=== PATIENT | female | born 1975 | race Caucasian/White ===

== ENCOUNTER → 2016-09-10 | Outpatient (CLI) | payer OTHER | LOC: FIMAGING 11:43 | PROVIDERS: ATTEND Obstetrics & Gynecology | DX: Z12.31 Encounter for screening mammogram for malignant neoplasm of breast (principal) | CPT/HCPCS: G0202 ==

== ENCOUNTER 2017-02-20 05:54 | Observation (INO) | payer OTHER ==
--- NOTE | 2017-01-23 16:56 | GHP ---
[f rep st] PREOP HISTORY AND PHYSICAL DATE OF ADMISSION: 02/20/2017 SURGERY DATE: 02/20/2017. PLANNED PROCEDURES: Total laparoscopic hysterectomy with bilateral salpingectomy. INDICATIONS: The patient is a 41-year-old 1, para 1-0-0-1, who has a longstanding history of very heavy periods. She soaks through a super plus pads and tampons and the tampons are often pushe d out by clots. She has tried conservative management with control pills, which did not regula te her cycles, and [facility], and is requesting definitive therapy. Patient has a known history of polycystic ovarian syndrome for which she takes metformin on a regular basis. We have discussed all management options with the patient. The patient is electing to proce ed with a total laparoscopic hysterectomy with bilateral salpingectomy. Risks and benefits have been extensively reviewed with the patient. The patient has been properly consented. MEDICAL HISTORY: Polycystic ovarian syndrome, migraines, depression, history of menstrual migraines, history of cervical dysplasia. Patient has a history of a skull fracture after falling out of a hig h chair MEDICATIONS: Metformin, venlafaxine, and Imitrex p.r.n. SURGICAL HISTORY: Repair of left knee meniscus, diagnostic laparoscopy followed by laparotomy when s he was 6 years old for a torsion of her right fallopian tube, which was not removed. It was tacked t o the sidewall. ALLERGIES: Reglan, which causes itching and restlessness. Sulfa, which causes a whole-body rash. 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 She denies tobacco, alcohol, or drug use. FAMILY MEDICAL HISTORY: Noncontributory. CERTIFIED GENETIC COUNSELOR HISTORY: Menarche age 10. Periods are every 25-32 days. They are extremely heavy with clots and cramps. The patient is a 1, para 1-0-0-1. In 2006, she had a vacuum-assisted vaginal delivery of a f ull-term, 6 pounds 6 ounce infant. The patient's was complicated by hyperemesis gravidarum . The patient had an episode of tachycardia which was treated medically and she was induced at 38 weeks. The patient does have a history of abnormal Pap smears. She had a history of cryosurgery in 2001. R epeat Paps have been negative. The patient denies any history of any other sexually transmitted dise ases. REVIEW OF SYSTEMS: 10-point review of systems is negative with the exception of the above-mentioned pertinent positives. PHYSICAL EXAMINATION: VITAL SIGNS: Stable. GENERAL APPEARANCE: Alert and oriented x3. PSYCH: Sh e has appropriate affect. NECK: Mobile and supple. HEART: Rate is regular. LUNGS: Clear to ausc ultation bilaterally. ABDOMEN: Soft, nondistended, nontender. No organomegaly is noted. EXTREMITIE S: No calf tenderness or edema. PELVIC: A mobile midposition uterus with no adnexal masses. Uteru s on ultrasound measures x 3.7 x 5.4 cm with an endometrium of 0.37 cm and a right ovary m easuring 2 x 1.9 x 1.9 cm with a complex area measured 1.7 x 1.2 x 1.6 cm. The left ovary is unremar kable with the exception of a small simple cyst. Endometrial biopsy is pending. ASSESSMENT AND PLAN: A 41-year-old 1, para 1-0-0-1 with a longstanding history of polycystic ovarian syndrome, menstrual migraines, and menorrhagia. She is requesting definitive therapy with a total laparoscopic hysterectomy with bilateral salpingectomy. Risks and benefits and all alternativ es have been extensively reviewed with the patient. Patient has been properly consented. /[id number]/MODL
[2017-02-20] MEDS ORDERED: ceFAZolin 2 GM/SWFI 2 GM/20 ML SYR IVP ONE (05:58)
[2017-02-20] MEDS ORDERED: LR 1,000 ML IV ONE (05:59)
[2017-02-20] MEDS ORDERED: LIDOCAINE 1% 2 ML INJ ID PRN (05:59)
[2017-02-20] MEDS ORDERED: BUPIVACAINE 0.5% 30 ML SDV ONE (06:13)
--- NOTE | 2017-02-20 06:55 | PDANEPAE ---
ANE History of Present Illness DUB ANE Past Medical History - Cardiovascular History Hx Hypertension: No Hx Arrhythmias: No Hx Chest Pain: No Hx Coronary Artery / Peripheral Vascular Disease: No Hx CHF / Valvular Disease: No Hx Palpitations: No - Pulmonary History Hx COPD: No Hx Asthma/Reactive Airway Disease: No Hx Recent Upper Respiratory Infection: No Hx Oxygen in Use at Home: No Hx Sleep Apnea: No Sleep Apnea Screening Result - Last Documented: Negative - Neurologic History Hx Cerebrovascular Accident: No Hx Seizures: No Hx Dementia: No - Endocrine History Hx Diabetes: No - Renal History Hx Renal Disorders: No - Liver History Hx Hepatic Disorders: No - Neurological & Psychiatric Hx Hx Neurological and Psychiatric Disorders: Yes Neurological / Psychiatric History Comment: migraines - Cancer History Hx Cancer: No - Congenital Disorder History Hx Congenital Disorders: No - GI History Hx Gastrointestinal Disorders: No - Other Health History Other Health History: polycistic ovaries - Chronic Pain History Chronic Pain: No - Surgical History Prior Surgeries: none ANE Review of Systems Review of Systems: - Exercise capacity METS (RN): 5 METS ANE Patient History - Allergies Allergies/Adverse Reactions: metoclopramide [From Reglan] Allergy (Verified 01/31/17 13:53) agitation Sulfa (Sulfonamide Antibiotics) Allergy (Verified 01/31/17 13:53) Rash - Home Medications Home medications: home medication list seen and reviewed Home Medications: SUMAtriptan [Imitrex 50 MG (*)] 100 mg PO DAILY PRN 01/31/17 [Last Taken ] Venlafaxine Xr [Effexor Xr 37.5MG (*)] 37.5 mg PO DAILY 01/31/17 [Last Taken ] metFORMIN HCL [Metformin HCl ER] 500 mg PO DAILY18 01/31/17 [Last Taken 02/19/17 ] - NPO status NPO Since - Liquids (Date): 02/19/17 NPO Since - Liquids (Time): 22:00 NPO Since - Solids (Date): 02/19/17 NPO Since - Solids (Time): 19:00 - Anes Hx Anes Hx: post operative nausea and vomiting - Smoking Hx Smoking Status: Never smoked - Family Anes Hx Family Hx Anesthesia Complications: none ANE Labs/Vital Signs - Vital Signs Blood Pressure: 126/85 Heart Rate: 67 Respiratory Rate: 16 O2 Sat (%): 97 Height: 167.64 cm Weight: 65.771 kg ANE Physical Exam - Airway Neck exam: FROM Mallampati Score: Class 1 Mouth exam: normal dental/mouth exam - Pulmonary Pulmonary: no respiratory distress - Cardiovascular Cardiovascular: regular rate and rhythym - ASA Status ASA Status: I ANE Anesthesia Plan Anesthesia Plan: general endotracheal anesthesia, spinal (PSR intrathecial MS for POPM)
[2017-02-20] MEDS ORDERED: MIDAZOLAM 2 MG/2 ML VIAL IVP ONE (06:56)
[2017-02-20] MEDS ORDERED: SCOPOLAMINE HYDROBROMIDE 1 MG/3 DAYS PATCH TD ONE (06:56)
[2017-02-20] MEDS ORDERED: fentaNYL 100 MCG/2 ML INJ ONE ×2 (07:08→10:43)
[2017-02-20] MEDS ORDERED: PROPOFOL 200 MG/20 ML VIAL ONE (07:09)
[2017-02-20] MEDS ORDERED: PROPOFOL/EMULSION 500 MG/50 ML BOTTLE IV ONE (07:09)
[2017-02-20] MEDS ORDERED: GLYCOPYRROLATE 0.2 MG/1 ML VIAL ONE (07:10)
[2017-02-20] MEDS ORDERED: ROCURONIUM 50 MG/5 ML VIAL ONE (07:10)
--- NOTE | 2017-02-20 07:17 | PDHPUP ---
History & Physical Update H&P update statement: This history and physical update is based on an assessment of the patient which was completed after admission or registration (within 24 hours), but prior to the surgery/procedure. H&P update: H&P reviewed & patient examined, no change in patient's condition since H&P completed H&P changes: patient had appendectomy at time of laparotomy for torsed fallopian tube
[2017-02-20] MEDS ORDERED: morphINE PF 5 MG/10 ML INJ ONE (07:20)
[2017-02-20] MEDS ORDERED: BUPIVACAINE/DEXTROSE 7.5MG/ML 2 ML SPINAL AMP SP ONE (07:22)
[2017-02-20] MEDS ORDERED: PHENYLEPHRINE HCL 100 MCG/ML SYR ONE (07:45)
[2017-02-20] MEDS ORDERED: DEXAMETHASONE 4 MG/ML VIAL ONE (07:56)
[2017-02-20] MEDS ORDERED: ONDANSETRON 4 MG/2 ML VIAL ONE ×2 (07:58→09:37)
[2017-02-20] MEDS ORDERED: METHYLENE BLUE 0.5% 50 MG/10 ML AMP ONE (09:04)
[2017-02-20] MEDS ORDERED: SUGAMMADEX SODIUM 200 MG/2 ML VIAL IVP ONE (09:49)
[2017-02-20] MEDS ORDERED: PROMETHAZINE HCL 25 MG/ML INJ IVP PRN (09:51)
[2017-02-20] MEDS ORDERED: NALOXONE HCL 0.4 MG/ML INJ IVP PRN (09:51)
[2017-02-20] MEDS ORDERED: ONDANSETRON 4 MG/2 ML VIAL IVP PRN (09:51)
[2017-02-20] MEDS ORDERED: fentaNYL 100 MCG/2 ML INJ IVP PRN (09:51)
--- NOTE | 2017-02-20 10:06 | POSTOPPROG ---
Post Op Note Date of Operation: 02/20/17 Surgeon: Tiffany Barnett Vice President Of Human Resources: cherelle hunt Anesthesiologist: savannah Anesthesia: GET(General Endotracheal), Spinal Pre-op Diagnosis: dysfunctional uterine bleeding, menorhrragia Post-op Diagnosis: same Procedure: total lap hyst, bilateral salpingectomy, removal of ovarian tissue, cysto Inf/Abcess present in the surg proc area at time of surgery?: No EBL: 50-100 Specimen(s): uterus, bilateral tubes, portion of right ovary
[2017-02-20] MEDS ORDERED: SUMAtriptan 50 MG TAB PO PRN (10:09)
--- NOTE | 2017-02-20 10:14 | POSTANESTH ---
Post Anesthetic Evaluation Cardiovascular Status: Normal, Stable Respiratory Status: Normal, Stable Level of Consciousness/Mental Status: Alert and Oriented Pain Control: Adequate, Prn Tx Ordered Nausea/Vomiting Control: Adequate, Prn Tx Ordered Complications Possibly Related to Anesthesia: None Noted
[2017-02-20] MEDS ORDERED: KETOROLAC 30 MG/1 ML SDV ONE (10:36)
[2017-02-20] MEDS ORDERED: KETOROLAC 30 MG/1 ML SDV IVP ONE (11:00)
--- NOTE | 2017-02-20 11:23 | GOP ---
[f rep st] OPERATIVE REPORT DATE OF OPERATION: 02/20/2017 SURGEON: Tiffany Barnett DO PREPARED FOODS ASSOCIATE: Juanis Pagan MD ANESTHESIA: Spinal with morphine and general anesthesia. ANESTHESIOLOGIST: Ulises Ruelas MD PREOPERATIVE DIAGNOSIS: Menorrhagia. POSTOPERATIVE DIAGNOSIS: Menorrhagia. PROCEDURE PERFORMED: Total laparoscopic hysterectomy with bilateral salpingectomy, removal of right ovarian suspected fibroma, and cystoscopy. FINDINGS: 1. Exam under anesthesia: Mobile retroverted uterus with no adnexal masses. 2. 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 SPECIMENS: Portion of right ovary, bilateral fallopian tubes, uterus, and cervix. ESTIMATED BLOOD LOSS: 50 cc. INDICATIONS: The patient is a 41-year-old 1, para 1, who has a longstanding history of very heavy periods. She soaks through a super-plus tampon and pad each cycle. She has tried conservative management with control pills, but they did not regulate her cycle. She is requesting definit abdullahi therapy. Management options were reviewed extensively with the patient, and decision was made to proceed with a total laparoscopic hysterectomy with bilateral salpingectomy. Risks and benefits of the procedure have been reviewed with the patient, and the patient has been properly consented. DESCRIPTION OF PROCEDURE: Patient was taken to the operating room with intravenous fluids in place. She was given 2 g of Ancef intravenously and then placed on the operating room table where spinal an esthesia was obtained. She was then repositioned into the dorsal supine position where general anest hesia was obtained. She was then repositioned into the dorsal lithotomy position where she was prepp ed and draped. A Williamson catheter was placed, and Venodynes were placed on her lower extremities. Exa m under anesthesia revealed a mobile retroverted uterus with no adnexal masses. A speculum was then placed in the patient's vagina. A single-tooth tenaculum was used to grasp the anterior lip of the c ervix. The cervix sounded to 8 cm. The MARLYN uterine manipulator was assembled with a 6 cm uterine t ip and a large cuff. It was inserted without difficulty and mobilized the uterus well. Attention was then turned to the patient's abdomen where a 5 mm skin incision was then made in the um bilicus after injecting with Marcaine. A 5 mm trocar was then advanced into the patient's abdomen un juanita direct visualization. The abdomen was then insufflated with CO2 gas until an adequate pneumoperi toneum was achieved. The area underneath the trocar insertion site was explored and found to be unre markable. A second 5 mm trocar was then placed in the patient's right lower quadrant under direct vi sualization, and a 10 mm trocar was placed in the patient's left lower quadrant under direct visualiz ation. The uterus was easily manipulated. Bilateral ureters were noted to be peristalsing. A left salpingectomy was then performed with the LigaSure, and the fallopian tube was then withdrawn. The l eft round ligament was then clamped, cauterized, and transected. The anterior and posterior leaflets of the broad ligament were clamped, cauterized, and transected. The uterine arteries were skeletoni zed, then clamped, cauterized, and transected. The bladder flap was created anteriorly. The right o vary and fallopian tube were noted to be adherent to the patient's pelvic sidewall due to the history of a salpingopexy due to a torsed fallopian tube when she was 6. So the right fallopian tube was di ssected out, and the right salpingectomy was performed without difficulty. This specimen was withdra wn through the tube. The right round ligament was then clamped, cauterized, and transected. The ant erior and posterior leaflets of the broad ligament were also clamped, cauterized, and transected. Th e uterine arteries were then skeletonized and transected, and the bladder flap was created anteriorly . The hook from the LigaSure was then used to perform the colpotomy. After the balloon from the RUM I was inflated, the colpotomy was done under direct visualization the entire time and was done withou t any issues. The specimen was then withdrawn through the vagina and handed off, and a sponge on a s tick within a glove was inserted into the vagina. An area that was suspicious for a fibroma on the r ight ovary was noted and was excised and handed off as specimen. A V-Loc suture was then used in a r unning fashion to close the vaginal cuff. Hemostasis was ensured. The patient was given methylene b lue, and a cystoscopy was performed. Bilateral ureteral jets were noted to be flowing and laparoscop ically we visualized bilateral ureters peristalsing. The Williamson was then replaced after performing th e cystoscopy. The cuff was again evaluated and pedicles, and they were all found to be hemostatic. The 10 mm trocar was then withdrawn. A 0 Vicryl stitch was used to close the fascia under direct vis ualization. The remainder of the trocars were removed after CO2 gas was expressed from the patient's abdomen. A 4-0 Monocryl stitch was used to close the skin incisions. A speculum exam was performed , and an intact vaginal cuff was noted with no bleeding. The patient was returned to the dorsal supi ne position where she was easily awoken from anesthesia. Sponge count was correct. The patient was transported to recovery room in stable condition. /[id number]/MODL
[2017-02-20] MEDS: KETOROLAC 30 MG/1 ML SDV IVP SCH ×3 (12:21→22:24)
--- NOTE | 2017-02-20 15:16 | SOAPPROG ---
SOAP Progress Note Assessment/Plan: Assessment: pod# 0 s/p [facility] BS cystoscopy for menorrhagia Plan: uncomplicated post operative course 02/20/17 15:14 Subjective: patient is doing great! pain is well controlled. has mild cramping sensation in lower back. was having some dizziness. has improved with hydration and crackers. has scopolamine patch. plesantly surprised by lack of nausea. not able to stand yet due to occasional dizziness. Objective: Vital Signs Temp Pulse Resp BP Pulse Ox 37.0 C 64 15 104/61 99 02/20/17 14:45 02/20/17 14:45 02/20/17 14:45 02/20/17 14:45 02/20/17 14:45 02/19/17 02/20/17 02/21/17 05:59 05:59 05:59 Intake Total 1765 Output Total 750 Balance 1015 Physical Exam - Physical Exam General Appearance: WD/WN, alert, no apparent distress Neck: non-tender, full range of motion, supple Respiratory: chest non-tender, lungs clear, normal breath sounds Cardiac/Chest: normal peripheral pulses, regular rate, rhythm Abdomen: normal bowel sounds, non-tender, soft Skin: normal color, warm/dry Extremities: normal range of motion, non-tender, normal inspection, normal capillary refill Neuro/Psych: no motor/sensory deficits, alert, normal mood/affect, oriented x 3 ICD10 Worksheet Patient Problems: Problems Problem Status Onset Menorrhagia Acute
[2017-02-20] MEDS ORDERED: diphenhydrAMINE 25 MG CAP PO PRN (16:55)
[2017-02-20] MEDS ORDERED: metFORMIN SR 500 MG TAB PO SCH (18:00)
[2017-02-21] MEDS: KETOROLAC 30 MG/1 ML SDV IVP SCH ×2 (03:48→11:38)
[2017-02-21] MEDS: HYDROCODONE/APAP 5/325 TAB PO PRN ×3 (05:47→14:13)
--- NOTE | 2017-02-21 08:09 | SOAPPROG ---
SOAP Progress Note Assessment/Plan: Assessment: 1) s/p [facility] BS cystoscopy for menorrhagia POD # 1 - pt is stable 2) Anemia Plan: Cont routine post-op care Encourage ambulation Start po analgesics as ordered Turner just removed Plan for d/c home if pain well controlled and voiding without difficulty Instructions reviewed with pt Rx given for [place] and Motrin Start iron/colace Pelvic rest RTC in 2 weeks for incision check 02/21/17 08:09 Subjective: Patient seen and examined. She is doing well, but notes some LLQ pain near incision that can be stabbing with movement. But overall her pain is well controlled. She was having some dizziness, but it has improved. Pt is OOB, casper regular diet, turner just removed, passing flatus. Denies any f/c/n/v/CP or SOB. Minimal spotting. Objective: Vital Signs Temp Pulse Resp BP Pulse Ox 37.1 C 59 L 14 82/52 L 96 02/21/17 05:50 02/21/17 05:50 02/21/17 05:50 02/21/17 05:50 02/21/17 05:50 Laboratory Results 02/21/17 03:50 02/20/17 02/21/17 02/22/17 05:59 05:59 05:59 Intake Total 2865 Output Total 1950 Balance 915 Physical Exam - Physical Exam General Appearance: WD/WN, alert, no apparent distress Respiratory: lungs clear, normal breath sounds Cardiac/Chest: regular rate, rhythm Abdomen: normal bowel sounds, non-tender (mild TTP LLQ), soft, organomegaly, distended (mild) Pelvic Exam: deferred Skin: normal color, warm/dry Extremities: non-tender, normal inspection Neuro/Psych: alert, normal mood/affect, oriented x 3 ICD10 Worksheet Patient Problems: Problems Problem Status Onset Menorrhagia Acute
--- NOTE | 2017-02-21 08:09 | SOAPPROG ---
SOAP Progress Note Assessment/Plan: Assessment: 1) s/p [facility] BS cystoscopy for menorrhagia POD # 1 - pt is stable 2) Anemia Plan: Cont routine post-op care Encourage ambulation Start po analgesics as ordered Turner just removed Plan for d/c home if pain well controlled and voiding without difficulty Instructions reviewed with pt Rx given for [place] and Motrin Start iron/colace Pelvic rest RTC in 2 weeks for incision check 02/21/17 08:09 Subjective: Patient seen and examined. She is doing well, but notes some LLQ pain near incision that can be stabbing with movement. But overall her pain is well controlled. She was having some dizziness, but it has improved. Pt is OOB, casper regular diet, turner just removed, passing flatus. Denies any f/c/n/v/CP or SOB. Minimal spotting. Objective: Vital Signs Temp Pulse Resp BP Pulse Ox 37.1 C 59 L 14 82/52 L 96 02/21/17 05:50 02/21/17 05:50 02/21/17 05:50 02/21/17 05:50 02/21/17 05:50 Laboratory Results 02/21/17 03:50 02/20/17 02/21/17 02/22/17 05:59 05:59 05:59 Intake Total 2865 Output Total 1950 Balance 915 Physical Exam - Physical Exam General Appearance: WD/WN, alert, no apparent distress Respiratory: lungs clear, normal breath sounds Cardiac/Chest: regular rate, rhythm Abdomen: normal bowel sounds, non-tender (mild TTP LLQ), soft, organomegaly, distended (mild) Pelvic Exam: deferred Skin: normal color, warm/dry Extremities: non-tender, normal inspection Neuro/Psych: alert, normal mood/affect, oriented x 3 ICD10 Worksheet Patient Problems: Problems Problem Status Onset Menorrhagia Acute
[2017-02-21] MEDS ORDERED: VENLAFAXINE XR 37.5 MG CAP PO SCH (09:00)
[2017-02-21] MEDS ORDERED: IBUPROFEN 600 MG TAB PO SCH (10:00)
[2017-02-21 10:21] VITALS: O2SAT 94
[2017-02-21 15:53] VITALS: BP 109/75; PULSE 76; RESP 18; TEMP 98
== END 2017-02-21 16:20 | disposition home or self-care (01) ==
LOC: F3E 05:54 → FOB 12:02
PROVIDERS: ADMIT Obstetrics & Gynecology; ATTEND Obstetrics & Gynecology
DX: N92.0 Excessive and frequent menstruation with regular cycle (principal); N93.8 Other specified abnormal uterine and vaginal bleeding; D62 Acute posthemorrhagic anemia; E28.2 Polycystic ovarian syndrome; G43.829 Menstrual migraine, not intractable, without status migrainosus; M25.571 Pain in right ankle and joints of right foot; Z88.2 Allergy status to sulfonamides
CPT/HCPCS: 58571; G0378; J0690; J1100; J1885; J2250; J2274; J2370; J2405; J2704; J3010; Q9968

== ENCOUNTER → 2017-09-12 | Outpatient (CLI) | payer OTHER | LOC: FIMAGING 08:17 | PROVIDERS: ATTEND Obstetrics & Gynecology | DX: Z12.31 Encounter for screening mammogram for malignant neoplasm of breast (principal); Z80.3 Family history of malignant neoplasm of breast ==

== ENCOUNTER → 2018-10-03 | Outpatient (CLI) | payer OTHER | LOC: FIMAGING 10:37 ==